=== PATIENT | female | born 1955 | race Caucasian/White ===

== ENCOUNTER 2021-10-26 20:18 | Emergency (ER) | payer MEDICARE ==
[2021-10-26] MEDS ORDERED: Adacel Vial IM ONE ×2 (21:09→21:14)
[2021-10-26] MEDS ORDERED: XYLOCAINE 1% HCL 20 ML MDV ONE (21:11)
[2021-10-26] MEDS ORDERED: XYLOCAINE 1% HCL 20 ML MDV IJ ONE (21:13)
--- NOTE | 2021-10-26 21:39 | ERPHSYRPT ---
- History of Present Illness Source: patient Exam Limitations: no limitations Patient Subjective Stated Complaint: Patient states she was walking through [employer] and she hit her leg off of a forklift in the store. Patient states the fork lift caused the laceration to her leg. Triage Nursing Assessment: Laceration noted to right lower anterior leg. Area measures 2.5cm X 0.5cm X ? depth. Area not actively bleeding upon arrival to ED but there is a moderate amount of bright red blood on the bandage patient was wearing when she arrived to the ED. Patient able to move RLE WNL without difficulties. Physician History: 2.5 cm R pre-tibial laceration obtained after hitting it on forklift. Pt given Tdap in ER. Method of Injury: direct blow Occurred: just prior to arrival Quality: constant Severity of Pain-Max: mild Severity of Pain-Current: mild Lower Extremities Pain: leg: right (2.5cm pre-tibial lac) Modifying Factors: Improves With: nothing Associated Symptoms: none Allergies/Adverse Reactions: No Known Drug Allergies Allergy (Verified 10/26/21 20:30) Home Medications: Amitriptyline HCl 1 tab PO HS 10/26/21 [History] Atorvastatin Calcium 1 tab PO DAILY 10/26/21 [History] Ezetimibe 10 mg [Zetia 10 MG] 1 tab PO DAILY 10/26/21 [History] Glipizide 5 mg [Glucotrol 5 MG] 1 tab PO DAILY 10/26/21 [History] Metformin HCl [Metformin ER Gastric] 1 tab PO BID 10/26/21 [History] Topiramate 25 mg [Topamax 25 MG] 1 cap PO BID 10/26/21 [History] Hx Tetanus, Diphtheria Vaccination/Date Given: No (NOT TETANUS) Hx Influenza Vaccination/Date Given: No Hx Pneumococcal Vaccination/Date Given: Yes Immunizations Up to Date: Yes Travel Risk - International Travel Have you traveled outside of the country in past 3 weeks: No - Coronavirus Screening Are you exhibiting any of the following symptoms?: No Close contact with a COVID-19 positive Pt in past 14-21 Days: No - Vaccine Status Have you recieved a Covid-19 vaccination: Yes [employer]: [facility] Experience - Vaccination Dates Date of 2cond Vaccination (if applicable): NOT TAKEN - Review of Systems Constitutional: No Symptoms Eyes: No Symptoms Ears, Nose, & Throat: No Symptoms Respiratory: No Symptoms Cardiac: No Symptoms Abdominal/Gastrointestinal: No Symptoms Genitourinary Symptoms: No Symptoms Skin: No Symptoms Neurological: No Symptoms Psychological: No Symptoms Endocrine: No Symptoms Hematologic/Lymphatic: No Symptoms - Past Medical History Pertinent Past Medical History: Yes Neurological History: No Pertinent History ENT History: No Pertinent History Cardiac History: High Cholesterol Respiratory History: No Pertinent History Endocrine Medical History: Diabetes Type II Musculoskeletal History: No Pertinent History GI Medical History: Gallbladder Disease History: No Pertinent History Psycho-Social History: No Pertinent History Female Reproductive Disorders: No Pertinent History - Past Surgical History Past Surgical History: Yes Neuro Surgical History: No Pertinent History Cardiac: No Pertinent History Respiratory: No Pertinent History Gastrointestinal: Cholecystectomy Genitourinary: No Pertinent History Musculoskeletal: Other Female Surgical History: No Pertinent History Other Surgical History: FOOT AND KNEE SURGERY (TORN MINISCUS), SINUS SURGERY - Social History Smoking Status: Never smoker Exposure to second hand smoke: No Drug Use: none Patient Lives Alone: No Significant Family History: no pertinent family hx - Nursing Vital Signs Nursing Vital Signs: Initial Vital Signs Temperature 98.7 F 10/26/21 20:32 Pulse Rate 89 10/26/21 20:32 Respiratory Rate 17 10/26/21 20:32 Blood Pressure 157/77 10/26/21 20:32 O2 Sat by Pulse Oximetry 96 10/26/21 20:32 Pain Scale Pain Intensity 4 hypertensive - Physical Exam General Appearance: no apparent distress Eyes, Ears, Nose, Throat Exam: normal ENT inspection Neck Exam: normal inspection, non-tender, supple, full range of motion, No Brudzinski, No Kernig's, No meningismus Cardiovascular/Respiratory Exam: normal breath sounds, regular rate/rhythm, heart sounds normal Gastrointestinal/Abdominal Exam: non-tender Back Exam: normal inspection Hips Exam: bilateral: non-tender, normal inspection Legs Exam: right leg: other (2.5 cm R pre-tibial lac) Knees Exam: bilateral knee: non-tender, normal inspection Ankle Exam: bilateral ankle: non-tender, normal inspection Neuro/Tendon Exam: normal sensation, normal motor functions, normal tendon functions, responds to pain, no evidence tendon injury Mental Status Exam: alert, oriented x 3, cooperative Skin Exam: normal color, warm, dry SpO2 Interpretation: normal SpO2: 96 O2 Delivery: Room Air Procedures - Laceration/Wound Repair Right Other Wound Location: Right (R pre-tibial area) Wound Length (cm): 2.5 Wound's Depth, Shape: superficial Wound Explored: clean Hibiclens Prep: Yes Anesthesia: local, 1% Lidocaine Volume Anesthetic (ccs): 5 Wound Repaired With: sutures Suture Size/Type: 3-0 (3.0 Ethilon x 6) Number of Sutures: 6 - Course Nursing assessment & vital signs reviewed: Yes Ordered Tests: Medication Summary Discontinued Medications Generic Name Dose Route Start Last Admin Trade Name Frekimberly PRN Reason Stop Dose Admin Diphtheria/Tetanus/Acell Pertussis 0.5 ml 10/26/21 21:09 10/26/21 21:15 Tdap --Diph,Pertuss(Acell),Tet Vac/Pf 0.5 Ml Vial IM 10/26/21 21:10 0.5 ml .ONCE ONE Administration Diphtheria/Tetanus/Acell Pertussis Confirm 10/26/21 21:14 Tdap --Diph,Pertuss(Acell),Tet Vac/Pf 0.5 Ml Vial Administered 10/26/21 21:15 Dose 0.5 ml IM .STK-MED ONE Lidocaine HCl Confirm 10/26/21 21:11 Lidocaine Hcl 1% 20 Ml Mdv 20 Ml Ml Administered 10/26/21 21:12 Dose 5 ml .ROUTE .STK-MED ONE Lidocaine HCl 5 ml 10/26/21 21:13 10/26/21 21:15 Lidocaine Hcl 1% 20 Ml Mdv 20 Ml Ml IJ 10/26/21 21:14 5 ml STAT ONE Administration - Progress Progress: improved Progress Note: 10/26/21 22:29 Tdap given in ER Counseled pt/family regarding: diagnosis, need for follow-up - Departure Departure Disposition: Home Clinical Impression: Laceration Condition: Stable Critical Care Time: No Referrals: DOCTOR,NO FAMILY [Primary Care Provider] - Follow up/PCP as directed Instructions: Wound Care (DC), Laceration Repair With Stitches (DC) Additional Instructions: Keep laceration dry for 2 days, then wash 1-2 times a day gently with soap/water Sutures out in 10 days Watch for signs of infection-redness/pain/pus/temperature greater than 100.5
[2021-10-26 21:43] VITALS: PULSE 80
[2021-10-26 21:59] VITALS: BP 120/74
[2021-10-26 22:29] VITALS: O2SAT 96
== END 2021-10-26 21:52 | disposition home or self-care (01) ==
LOC: ED 20:18
DX: S81.811A Laceration without foreign body, right lower leg, initial encounter (principal); W22.8XXA Striking against or struck by other objects, initial encounter; Y93.01 Activity, walking, marching and hiking; Y92.513 Shop (commercial) as the place of occurrence of the external cause; E78.5 Hyperlipidemia, unspecified; E11.9 Type 2 diabetes mellitus without complications; Z79.84 Long term (current) use of oral hypoglycemic drugs; Z79.899 Other long term (current) drug therapy; Z28.311 Partially vaccinated for COVID-19
CPT/HCPCS: 12001; 90471; 90715; 96372; 99284